=== PATIENT | female | born 1975 | race Caucasian/White ===

== ENCOUNTER 2016-10-26 09:33 | Emergency (ER) | payer MEDICAID ==
[2016-10-26] MEDS ORDERED: SILVER SULFADIAZINE 25 APP/25 GM TUBE TOPICAL ONE (10:04)
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
== END 2016-10-26 11:00 | disposition home or self-care (01) ==
LOC: ER 09:33
DX: T23.251A Burn of second degree of right palm, initial encounter (principal); T23.211A Burn of second degree of right thumb (nail), initial encounter; T31.0 Burns involving less than 10% of body surface; X10.2XXA Contact with fats and cooking oils, initial encounter; Y93.G3 Activity, cooking and baking; Z79.899 Other long term (current) drug therapy
CPT/HCPCS: 99284